=== PATIENT | female | born 1985 | race Caucasian/White ===

== ENCOUNTER 2017-02-11 19:41 | Emergency (ER) | payer SELFPAY ==
--- NOTE | 2017-02-11 20:45 | ER Document Report ---
HPI - HPI Patient complains to provider of: right foot pain Pain Level: 4 Context: Patient is a 31-year-old female that comes emergency department for chief complaint of right foot pain. She states she was standing at work, wearing tennis shoes, and felt a sudden sharp pop in her foot and had sudden pain, she states now it is difficult to walk on her foot. She denies history of the same. She has had right knee surgery, denies any other medical history, denies any daily medications, LMP within the past month. - REPRODUCTIVE Reproductive: DENIES: : - DERM Skin Color: Normal, [place] Past Medical History - General Information source: Patient - Social History Smoking Status: Never Smoker Frequency of alcohol use: None Drug Abuse: None Lives with: Family Family History: Reviewed & Not Pertinent Pulmonary Medical History: Reports: Hx Asthma Renal/ Medical History: Denies: Hx Peritoneal Dialysis Past Surgical History: Reports: Hx Section - x2, Hx Orthopedic Surgery - right knee fx, Hx Tonsillectomy - Immunizations Hx Diphtheria, Pertussis, Tetanus Vaccination: Yes Vertical Provider Document - CONSTITUTIONAL General Appearance: WD/WN, No Apparent Distress - INFECTION CONTROL TRAVEL OUTSIDE OF THE [place] IN LAST 30 DAYS: No - HEENT HEENT: Atraumatic, Normal ENT Exam, Normocephalic - NECK Neck: Normal Inspection - RESPIRATORY Respiratory: Breath Sounds Normal, No Respiratory Distress O2 Sat by Pulse Oximetry: 94 - CARDIOVASCULAR Cardiovascular: Regular Rate, Regular Rhythm - GI/ABDOMEN Gastrointestinal: Abdomen Soft, Abdomen Non-Tender - BACK Back: Normal Inspection - MUSCULOSKELETAL/EXTREMETIES Musculoskeletal/Extremeties: Tender - patient with some tenderness over the right mid dorsal foot; no swelling, bruising, or other abnormality noted. Nontender ankle. Normal pulse and sensation. Normal LE exam otherwise. Course - Re-evaluation Re-evalutation: June the mid dorsal foot on the right, no signs of injury, x-ray was reviewed and shows no abnormalities. Patient placed on anti-inflammatory, given Silvestre wrap and crutches because of complaints of difficulty walking on the foot. Discussed primary care follow-up and return precautions. Patient states understanding and agreement. - Vital Signs Vital signs: Temp Pulse Resp BP Pulse Ox 98.8 F 95 18 123/83 94 02/11/17 19:52 02/11/17 19:52 02/11/17 19:52 02/11/17 19:52 02/11/17 19:52 Procedures - Immobilization Right foot Pre-Proc Neuro Vasc Exam: Normal Immobilizer type: Silvestre wrap Performed by: ANUM Post-Proc Neuro Vasc Exam: Normal Alignment checked and good: Yes Discharge - Discharge Clinical Impression: Right foot pain Condition: Stable Disposition: HOME, SELF-CARE Additional Instructions: The x-ray does not show any concerning abnormalities. Your symptoms and examination are consistent with a sprain of the foot. Recommend taking the anti-inflammatory as prescribed with food, ice the area on the foot 3-4 times a day for the next couple of days, use the Silvestre wrap, crutches for the couple of days, and elevate the foot. This should resolve quickly. Follow up with primary care. Return to emergency department for any concerning symptoms. Prescriptions: Naproxen 500 mg PO BID #20 tablet Forms: Return to Work
--- NOTE | 2017-02-11 21:12 | RADIOLOGY REPORT (SQ) ---
EXAM DESCRIPTION: FOOT RIGHT COMPLETE COMPLETED DATE/TIME: 02/11/2017 8:10 pm REASON FOR STUDY: pain s/p injury COMPARISON: None. NUMBER OF VIEWS: Three views. TECHNIQUE: AP, lateral and oblique radiographic images acquired of the right foot. LIMITATIONS: None. FINDINGS: MINERALIZATION: Normal. BONES: No acute fracture or dislocation. No worrisome bone lesions. JOINTS: No effusions. SOFT TISSUES: No soft tissue swelling. No foreign body. OTHER: No other significant finding. IMPRESSION: NEGATIVE STUDY OF THE RIGHT FOOT. NO RADIOGRAPHIC EVIDENCE OF ACUTE INJURY. TECHNICAL DOCUMENTATION: JOB ID: [id number] [employer]- All Rights Reserved
[2017-02-11] MEDS ORDERED: IBUPROFEN 600 MG TABLET PO ONE (21:32)
[2017-02-11 21:40] VITALS: BP 124/86
== END 2017-02-11 21:40 | disposition home or self-care (01) ==
LOC: ER 19:41
DX: M79.671 Pain in right foot (principal); J45.909 Unspecified asthma, uncomplicated
CPT/HCPCS: 99283

== ENCOUNTER 2017-05-11 21:08 | Emergency (ER) | payer SELFPAY ==
[2017-05-11 22:02] VITALS: BP 134/68
== END 2017-05-11 23:42 | disposition left against medical advice (07) ==
LOC: ER 21:08
DX: Z53.9 Procedure and treatment not carried out, unspecified reason (principal); R11.0 Nausea; R19.7 Diarrhea, unspecified

== ENCOUNTER 2017-10-21 20:18 | Emergency (ER) | payer SELFPAY | END 2017-10-21 20:30 | disposition left against medical advice (07) | LOC: ER 20:18 | DX: Z53.21 Procedure and treatment not carried out due to patient leaving prior to being seen by health care provider (principal) ==

== ENCOUNTER 2017-10-22 18:52 | Emergency (ER) | payer OTHER ==
[2017-10-22] MEDS ORDERED: OXYCODONE-ACETAMINOPHEN 5-325 MG TABLET PO ONE (19:35)
[2017-10-22] MEDS ORDERED: ONDANSETRON 4 MG TAB.RAPDIS PO ONE (19:35)
--- NOTE | 2017-10-22 19:39 | ER Document Report ---
ED Medical Screen (RME) - General Chief Complaint: Facial Swelling Stated Complaint: POSSIBLE ALLERIC REACTION Time Seen by Provider: 10/22/17 19:31 Notes: 32-year-old female patient with right jaw pain and swelling. The edema goes under the jaw over to the left side. There is percussion tenderness to 1 of the left lower molars. There is considerable edema to the gum around the molar. There is not appear to be swelling under the tongue and the floor the mouth. There is tenderness to palpate the soft tissues in the submental region in addition to the area on the right jaw where the involved tooth is located. She does have a slight fever. I have greeted and performed a rapid initial assessment of this patient. A comprehensive ED assessment and evaluation of the patient, analysis of test results and completion of the medical decision making process will be conducted by additional ED providers. TRAVEL OUTSIDE OF THE [place] IN LAST 30 DAYS: No - Related Data Allergies/Adverse Reactions: Penicillins Allergy (Verified 10/22/17 18:53) Sulfa (Sulfonamide Antibiotics) Allergy (Verified 10/22/17 18:53) sulfamethoxazole [From Septra] Allergy (Verified 10/22/17 18:53) trimethoprim [From Marra] Allergy (Verified 10/22/17 18:53) Past Medical History Pulmonary Medical History: Reports: Hx Asthma Renal/ Medical History: Denies: Hx Peritoneal Dialysis Past Surgical History: Reports: Hx Section - x2, Hx Orthopedic Surgery - right knee fx, Hx Tonsillectomy - Immunizations Hx Diphtheria, Pertussis, Tetanus Vaccination: Yes Physical Exam - Vital signs Vitals: Temp Pulse Resp BP Pulse Ox 99.3 F 107 H 18 137/99 H 98 10/22/17 18:57 10/22/17 18:57 10/22/17 18:57 10/22/17 18:57 10/22/17 18:57 Course - Vital Signs Vital signs: Temp Pulse Resp BP Pulse Ox 99.3 F 107 H 18 137/99 H 98 10/22/17 18:57 10/22/17 18:57 04 18:57 10/22/17 18:57 10/22/17 18:57
[2017-10-22] MEDS ORDERED: CLINDAMYCIN 900 MG/D5W RTU 50 ML IV ONE (20:48)
--- NOTE | 2017-10-22 20:49 | ER Document Report ---
ED Head/Face/Scalp Injury - General Chief Complaint: Facial Swelling Stated Complaint: POSSIBLE ALLERIC REACTION Time Seen by Provider: 10/22/17 19:31 Notes: 32-year-old female to the emergency department complaining of swelling in the throat, inability to swallow, change in voice and pain in the right cheek and underneath the chin and on the right side of the face. Started yesterday and continued to get worse today. Woke up with redness and swelling on the right side of the face and in her neck area. TRAVEL OUTSIDE OF THE [place] IN LAST 30 DAYS: No - HPI Patient complains to provider of: Pain, Swelling Location of problem: Cheek, Chin, Jaw, Mouth, Neck Occurred: Yesterday Remembers: No: Injury - Related Data Allergies/Adverse Reactions: Penicillins Allergy (Verified 10/22/17 18:53) Sulfa (Sulfonamide Antibiotics) Allergy (Verified 10/22/17 18:53) sulfamethoxazole [From Marra] Allergy (Verified 10/22/17 18:53) trimethoprim [From Marra] Allergy (Verified 10/22/17 18:53) Past Medical History - General Information source: Patient - Social History Smoking Status: Current Every Day Smoker Cigarette use (# per day): Yes Chew tobacco use (# tins/day): No Frequency of alcohol use: Occasional Drug Abuse: None Lives with: Family Family History: Reviewed & Not Pertinent Patient has suicidal ideation: No Patient has homicidal ideation: No Pulmonary Medical History: Reports: Hx Asthma Renal/ Medical History: Denies: Hx Peritoneal Dialysis Past Surgical History: Reports: Hx Section - x2, Hx Orthopedic Surgery - right knee fx, Hx Tonsillectomy - Immunizations Hx Diphtheria, Pertussis, Tetanus Vaccination: Yes Review of Systems - Review of Systems Constitutional: No symptoms reported EENT: Throat pain, Difficulty swallowing, Mouth pain, Other - Facial pain Cardiovascular: No symptoms reported, Heart racing. denies: Chest pain, Orthopnea Respiratory: No symptoms reported Gastrointestinal: No symptoms reported Genitourinary: No symptoms reported Female Genitourinary: No symptoms reported Musculoskeletal: No symptoms reported Skin: No symptoms reported Hematologic/Lymphatic: No symptoms reported Neurological/Psychological: No symptoms reported Physical Exam - Vital signs Vitals: Temp Pulse Resp BP Pulse Ox 99.3 F 107 H 18 137/99 H 98 10/22/17 18:57 10/22/17 18:57 10/22/17 18:57 10/22/17 18:57 10/22/17 18:57 Interpretation: Tachycardic - General General appearance: Alert In distress: None - HEENT Head: Normocephalic Eyes: Normal Conjunctiva: Normal Nasal: Normal Mouth/Lips: No: Angioedema Mucous membranes: Normal Pharynx: Normal Neck: Other - There is anterior submandibular enlargement mostly from obesity with some tenderness in the anterior neck region. There is no significant sublingual tenderness. No obvious Sy's angina - Respiratory Respiratory status: No respiratory distress Chest status: Nontender Breath sounds: Normal Chest palpation: Normal - Cardiovascular Rhythm: Tachycardia Heart sounds: Normal auscultation Murmur: No - Abdominal Inspection: Normal Distension: No distension Bowel sounds: Normal Tenderness: Nontender Organomegaly: No organomegaly - Extremities General upper extremity: Normal inspection, Nontender, Normal color, Normal ROM , Normal temperature General lower extremity: Normal inspection, Nontender, Normal color, Normal ROM , Normal temperature, Normal weight bearing. No: Analy's sign - Neurological Neuro grossly intact: Yes Cognition: Normal Orientation: AAOx4 [place] Coma Scale Eye Opening: Spontaneous Marie Coma Scale Verbal: Oriented Marie Coma Scale Motor: Obeys Commands Marie Coma Scale Total: 15 Speech: Normal Motor strength normal: LUE, RUE, LLE, RLE Sensory: Normal - Psychological Associated symptoms: Normal affect, Normal mood - Skin Skin Temperature: Warm Skin Moisture: Dry Skin Color: Normal Course - Re-evaluation Re-evalutation: 10/22/17 22:35 His concern for possible RPA versus abscess in the facial region. Will proceed with CT scan of the neck. Labs obtained. Will start antibiotics at this time. 10/22/17 23:33 CT scan ordered. Concern for abscess at the level of the hyoid on the right. ENT was consulted. Antibiotics and Decadron ordered. 10/22/17 23:58 Patient feeling better after antibiotics and steroids and Toradol. ENT has looked at films. States the patient more than likely has a small abscess but at this time they do not feel it needs to be drained. Dr. Joyce with ENT will follow her as an outpatient. Will continue clindamycin 4 times a day, Decadron for the next 3 days. Strict instructions will be given to return immediately if symptoms are getting worse - Vital Signs Vital signs: Temp Pulse Resp BP Pulse Ox 99.3 F 107 H 18 137/99 H 98 10/22/17 18:57 10/22/17 18:57 10/22/17 18:57 10/22/17 18:57 10/22/17 18:57 - Laboratory Result Diagrams: 10/22/17 21:17 10/22/17 21:17 Discharge - Discharge Clinical Impression: Submandibular abscess Condition: Good Disposition: HOME, SELF-CARE Instructions: Abscess ([facility]), Clindamycin ([facility]), Sore Throat ([facility]) Additional Instructions: You may have an abscess in your neck which may need to be seen by an speech and hearing director. A specialist was consulted tonight. They would like to see you as an outpatient in the clinic. Please call first thing in the morning to schedule an appointment in the next 2 or 3 days. I am starting you on antibiotics, steroids. In the event that you begin to have worsening difficulty with swallowing, pain in the chest, unable to take your meds or any other concerns please return immediately. It is very important that you take all medications as prescribed. Please get your medications first thing in the morning and begin taking as instructed. Prescriptions: Clindamycin HCl 300 mg PO QID 10 Days #40 capsule Dexamethasone [Decadron 4 Mg Tablet] 4 mg PO DAILY 3 Days #3 tablet Hydrocodone/Acetaminophen [[place] 5-325 mg Tablet] 1 tab PO TID PRN 2 Days #6 tablet PRN Reason: Pain Scale Of 3 Referrals: OMKAR JOYCE DO [ASSOCIATE] - 10/23/17 8:00 am
[2017-10-22 21:31] LABS: ABSOLUTE BASOPHILS # (AUTO) 0.1 10^3/uL (0.0-0.2); ABSOLUTE LYMPHOCYTES (AUTO) 1.6 10^3/uL (0.5-4.7); ABSOLUTE MONOCYTES (AUTO) 0.7 10^3/uL (0.1-1.4); ABSOLUTE NEUT (AUTO) 6.4 10^3/uL (1.7-8.2); BASOPHILS % (AUTO) 0.7 % (0-2); EOSINOPHILS % (AUTO) 0.3 % (0-6); HEMATOCRIT 41.1 % (36.0-47.0); HEMOGLOBIN 13.8 g/dL (12.0-15.5); LYMPHOCYTES % (AUTO) 18.6 % (13-45); MEAN CORPUSCULAR HEMOGLOBIN 30.8 pg (27.0-33.4); MEAN CORPUSCULAR HGB CONC 33.7 g/dL (32.0-36.0); MEAN CORPUSCULAR VOLUME 92 fl (80-97); MONOCYTES % (AUTO) 7.6 % (3-13); PLATELET COUNT 289 10^3/uL (150-450); RED BLOOD COUNT 4.49 10^6/uL (3.72-5.28); RED CELL DISTRIBUTION WIDTH 12.8 % (11.5-14.0); SEGMENTED NEUTROPHILS % (AUTO) 72.8 % (42-78); TOTAL CELLS COUNTED % (AUTO) 100 %; WHITE BLOOD COUNT 8.8 10^3/uL (4.0-10.5)
[2017-10-22 21:57] LABS: ANION GAP 8 (5-19); BLOOD UREA NITROGEN 8 mg/dL (7-20); CALCIUM 9.3 mg/dL (8.4-10.2); CARBON DIOXIDE 23 mmol/L (22-30); CHLORIDE 107 mmol/L (98-107); GLUCOSE 94 mg/dL (75-110); POTASSIUM 4.2 mmol/L (3.6-5.0); SODIUM 137.6 mmol/L (137-145)
[2017-10-22] MEDS ORDERED: KETOROLAC TROMETHAMINE INJ/PF 30 MG/1 ML SDV IV ONE (22:36)
[2017-10-22] MEDS ORDERED: DEXAMETHASONE SOD PHOS INJ 10 MG/1 ML VIAL IV ONE (22:36)
--- NOTE | 2017-10-22 23:21 | RADIOLOGY REPORT (SQ) ---
EXAM DESCRIPTION: CT SOFT TISSUE NECK WITH COMPLETED DATE/TIME: 10/22/2017 10:48 pm REASON FOR STUDY: NECK PAIN AND SWELLING, DIFF SWALLOWING COMPARISON: None. TECHNIQUE: Post IV contrasted scanning from skull base through lung apices with review of bone, soft tissue and lung windows. Reconstructed coronal and sagittal MPR images reviewed. All images stored on PACS. All CT scanners at this facility use dose modulation, iterative reconstruction, and/or weight based d osing when appropriate to reduce radiation dose to as low as reasonably achievable (ALARA). [facility]: Dose Right [facility]: CareDose [facility]: Dose Right [facility]: Teradose 4D [facility]: Fligoo CONTRAST TYPE AND DOSE: contrast/concentration: Isovue 370.00 mg/ml; Total Contrast Delivered: 75.0 ml; Total Saline Delivered: 40.0 ml RENAL FUNCTION: None required. The patient is less than 50 years old. RADIATION DOSE: CT Rad equipment meets quality standard of care and radiation dose reduction techniq ues were employed. CTDIvol: 17.3 - 17.4 mGy. DLP: 1089 mGy-cm. . LIMITATIONS: None. FINDINGS: SKULL BASE: Intact. MAJOR SALIVARY GLANDS: No solid or cystic masses. No inflammatory changes. LYMPHADENOPATHY: Submandibular reactive appearing lymph nodes are present. MUCOSAL MASSES OR ASYMMETRY: Asymmetric right visceral space soft tissue thickening is present at the level of the hyoid bone. A 10 x 8 x 9 mm area of central hypoattenuation may represent a developing abscess; neoplasm is not excluded. This finding narrows the airway, which remains patent. VASCULAR STRUCTURES: The major vessels are patent. LUNG APICES: Clear. BONES: Intact. THYROID: Normal size. No masses. PARANASAL SINUSES: Clear. OTHER: No other significant finding. IMPRESSION: Soft tissue thickening within the right cord aspect of the visceral space at the level t he hyoid bone. While a 10 x 8 x 9 mm area of central hypo attenuation suggests a developing abscess, neoplasm is not excluded. TECHNICAL DOCUMENTATION: JOB ID: [id number] Quality ID # [id number]: Final reports with documentation of one or more dose reduction techniques (e.g., Au tomated exposure control, adjustment of the mA and/or kV according to patient size, use of iterative reconstruction technique) 2010 [employer]- All Rights Reserved Reading location - IP[facility]workstation name: [email or web address]
[2017-10-23] MEDS ORDERED: HYDROCODONE/ACETAMINOPHEN 5-325 MG (6 TAB/ER DISP) PO PRN (00:10)
[2017-10-23 00:54] VITALS: BP 112/72
== END 2017-10-23 00:56 | disposition home or self-care (01) ==
LOC: ER 18:52
DX: K12.2 Cellulitis and abscess of mouth (principal); R22.0 Localized swelling, mass and lump, head; R13.10 Dysphagia, unspecified; R51 Headache; F17.210 Nicotine dependence, cigarettes, uncomplicated; J45.909 Unspecified asthma, uncomplicated
CPT/HCPCS: 99284; 96375; 96365; 36415; 87040; 84703; 85025; 80048; 70491; S0119; J1885; J1100

== ENCOUNTER 2018-05-15 18:49 | Emergency (ER) | payer OTHER ==
--- NOTE | 2018-05-15 19:28 | ER Document Report ---
HPI - HPI Patient complains to provider of: Left great toe pain Onset: Other - Saturday Onset/Duration: Gradual Pain Level: 4 Context: 32-year-old female had ingrown toenails cut out by Dr. Hansen but no the operational risk consultant on Saturday. She is complaining of pain and persistent drainage. No fever. Associated Symptoms: None Exacerbated by: Movement Relieved by: Denies - ROS ROS below otherwise negative: Yes Systems Reviewed and Negative: Yes All other systems reviewed and negative - REPRODUCTIVE Reproductive: DENIES: : Past Medical History - General Information source: Patient - Social History Smoking Status: Never Smoker Lives with: Family Family History: Reviewed & Not Pertinent - Medical History Notes: deaf, wears hearing aids, reads lips Pulmonary Medical History: Reports: Hx Asthma Renal/ Medical History: Denies: Hx Peritoneal Dialysis Past Surgical History: Reports: Hx Section - x2, Hx Orthopedic Surgery - right knee fx, Hx Tonsillectomy - Immunizations Hx Diphtheria, Pertussis, Tetanus Vaccination: Yes Vertical Provider Document - CONSTITUTIONAL Agree With Documented VS: Yes Exam Limitations: No Limitations - INFECTION CONTROL TRAVEL OUTSIDE OF THE [place] IN LAST 30 DAYS: No - MUSCULOSKELETAL/EXTREMETIES Musculoskeletal/Extremeties: MAEW, Tender - Red inflamed left great toe dorsal aspect with clear serous drainage from bilateral ingrown nail portions removed, Edema - mild - NEURO Level of Consciousness: Alert Motor/Sensory: No Motor Deficit, No Sensory Deficit Course - Vital Signs Vital signs: Temp Pulse Resp BP Pulse Ox 98.2 F 95 20 131/81 H 99 05/15/18 19:16 05/15/18 19:16 05/15/18 19:16 05/15/18 19:16 05/15/18 19:16 Discharge - Discharge Clinical Impression: Inflamed lt gt toe post surgery Condition: Good Disposition: HOME, SELF-CARE Instructions: Clindamycin ([facility]), Elevation & Warmth ([facility]), Ibuprofen (General) ([facility]) Additional Instructions: See the operational risk consultant tomorrow Elevate and use heat on the toe Clindamycin 300 mg 3 times a day Motrin 600 mg up to 4 times a day for pain Tylenol up to 4000 mg a day for pain Prescriptions: Ibuprofen [Motrin 600 mg Tablet] 600 mg PO Q6HP PRN #30 tablet PRN Reason: Clindamycin HCl [Cleocin 150 mg Capsule] 300 mg PO TID #42 capsule Forms: Return to Work Referrals: HAMILTON WILSON DPM [ACTIVE STAFF] - Follow up tomorrow
[2018-05-15] MEDS ORDERED: ACETAMINOPHEN 325 MG TABLET PO ONE (19:51)
[2018-05-15] MEDS ORDERED: IBUPROFEN 800 MG TABLET PO ONE (19:51)
[2018-05-15 20:03] VITALS: BP 120/77
== END 2018-05-15 20:08 | disposition home or self-care (01) ==
LOC: ER 18:49
DX: L08.9 Local infection of the skin and subcutaneous tissue, unspecified (principal); M79.674 Pain in right toe(s); Z98.890 Other specified postprocedural states
CPT/HCPCS: 99283